=== PATIENT | male | born 1965 | race Caucasian/White ===

== ENCOUNTER 2016-11-28 05:53 | Day surgery (SDC) | payer BC ==
[~2016-11-28 05:53] MED LIST: Buffered Lidocaine 0.9% SYRIN* 5 ML/SYR SYRINGE INTRADERM ONE
[2016-11-28] MEDS ORDERED: Buffered Lidocaine 0.9% SYRIN* 5 ML/SYR SYRINGE ONE (05:55)
[2016-11-28] MEDS ORDERED: Dexamethasone IV* 4 MG/ML 1 ML (4 MG) ONE (05:55)
[2016-11-28] MEDS ORDERED: Famotidine IV* 10 MG/ML 2 ML (20 mg) ONE (05:55)
[2016-11-28] MEDS ORDERED: Clindamycin 900 MG IVPREMIX(* 900 MG/50 ML SDV IV ONE (05:55)
[2016-11-28] MEDS ORDERED: Famotidine IV* 10 MG/ML 2 ML (20 mg) IV ONE (06:00)
[2016-11-28] MEDS ORDERED: Dexamethasone IV* 4 MG/ML 1 ML (4 MG) IV SLOW PU ONE (06:00)
[2016-11-28] MEDS ORDERED: EPINEPHrine AMP 1 MG/ML ONE (06:57)
[2016-11-28] MEDS ORDERED: Bupivacaine 0.5% SDV PF* 30 ML VIAL ONE (06:58)
[2016-11-28] MEDS ORDERED: Propofol* 10 MG/ML 20 ML BTL IV PUSH ONE (07:12)
[2016-11-28] MEDS ORDERED: fentaNYL* 50 MCG/ML 2 ML VIAL (100 MCG VIAL) ONE ×2 (07:12→08:56)
[2016-11-28] MEDS ORDERED: Midazolam* 1 MG/ML 5 ML VIAL (5 MG) ONE (07:12)
[2016-11-28] MEDS ORDERED: Lidocaine 2% PF * 5 ML VIAL ONE (07:12)
[2016-11-28] MEDS ORDERED: Ketorolac INJ* 30 MG/ML 1 ML VIAL ONE (07:41)
[2016-11-28] MEDS ORDERED: Ondansetron INJ* 2 MG/ML VIAL ONE (08:03)
[2016-11-28] MEDS ORDERED: PROCHLORPERAZINE INJ 5 MG/ML 2 ML VIAL IV PRN (08:07)
[2016-11-28] MEDS ORDERED: HYDROcodone/ACETAMIN 5-325 MG* 1 TAB PO PRN (08:07)
[2016-11-28] MEDS ORDERED: oxyCODONE/Acetamin 5/325 MG* TAB ONE (08:42)
[2016-11-28] MEDS: oxyCODONE/Acetamin 5/325 MG* TAB PO PRN ×2 (08:43→08:44)
[2016-11-28] MEDS: fentaNYL* 50 MCG/ML 2 ML VIAL (100 MCG VIAL) IV PRN ×2 (08:58→09:55)
[2016-11-28] MEDS ORDERED: diPHENhydraMINE IV* 50 MG/ML 1 ml VIAL (BENADRYL) ONE (09:19)
[2016-11-28 09:49] VITALS: BP 137/77
--- NOTE | 2016-12-01 01:19 | OP ---
DATE OF OPERATION: 11/28/16 - [facility] DATE OF : 61 SURGEON: Gamal Ngo MD NURSE UNIT MANAGER: JIM Carrillo. A physician state tested nursing assistant was required for the length of the procedure for positioning and manipulation of knee and instrumentation assistance. ANESTHESIOLOGIST: Bayron Simpson MD ANESTHESIA: General anesthesia. PRE-OP DIAGNOSIS: Left knee medial meniscus tear POST-OP DIAGNOSIS: Left knee medial meniscus tear OPERATIVE PROCEDURE: Left knee arthroscopy, partial medial meniscectomy. ANTIBIOTICS: Clindamycin 900 mg IV. IV FLUIDS: 400 cc crystalloid. TOURNIQUET TIME: 23 minutes at 300 mmHg. COMPLICATIONS: None. SPECIMEN: None. IMPLANTS: None. ESTIMATED BLOOD LOSS: Minimal. 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 See my history and physical and prior clinical notes for full history. The patient had pain with terminal ranges of motion, positive medial joint line tenderness and positive Madina's test. Exam was consistent with medial meniscus tear and MRI demonstrated medial meniscus tear with what looked to be a displaced fragment that would be responsible for mechanical symptoms, displaced inferior to the body of the medial meniscus. The patient responded insufficiently to nonoperative management, opted for operative management. I discussed in the clinic benefits, risks, and potential complications of surgery. Potential complications include bleeding, infection, nerve or blood vessel injury, knee pain or stiffness, meniscus retear, knee osteoarthritis, blood clot. DESCRIPTION OF PROCEDURE: Preoperative written consent was obtained. Operative extremity was marked in the preoperative holding. The patient was taken back to the operating room and placed supine on the operating room table. The patient was sedated and intubated. A proximal thigh tourniquet was placed about the proximal left thigh. The distal thigh was placed in a circumferential thigh maciel. The table was elevated and the foot of the table was dropped. The left lower extremity was prepped using ChloraPrep from foot to thigh. Left lower extremity was draped. Surgical time-out was performed. Esmarch was applied and tourniquet was elevated to 300 mmHg. Inferolateral knee arthroscopy portal was established using standard technique. Diagnostic arthroscopy was commenced. No clear injury in the patellofemoral compartment was visualized, although there was some synovitis creeping into that compartment visualized. I next dropped down into the medical compartment. No clear significant defects or injuries of the medial compartment articular cartilage, but there was clear tear of the medial meniscus. Immediately visible was a flap from the posterior horn near the root as well as a clear fragment from the juncture of the body and posterior horn of the medial meniscus that was displaced inferiorly to the body of the medial meniscus. I established an anterior medial portal under direct visualization. I next debrided the medial meniscus back to a stable rim using an arthroscopic shaver and meniscal biters. I debrided using a working portal, the anterior medial portal and then afterwards from the anterolateral portal. The remaining meniscus was stable. The patient was fortunate in that much thickness of intact medial meniscus remained at the end of the debridement. I advanced my diagnostic arthroscopy to the intercondylar notch. ACL was intact. I advanced it to the lateral compartment where no articular cartilage injury or lateral meniscus injury was encountered. I next returned to the patellofemoral compartment and debrided some anterior synovitis. I removed the instrument and fluids from the knee. Closed skin incisions with [id number] stitches using nylon 4-0 suture. Xeroform, 4x4s, ABDs, sterile Webril, Matt bandage from foot to proximal thigh. Tourniquet was dropped. No local anesthetic was used. Cooling unit was placed on the left knee. The patient was extubated and transferred to the PACU. DISPOSITION: The patient was to be discharged home when medically stable. Percocet for pain control, aspirin 325 mg p.o. b.i.d. x2 weeks for DVT prophylaxis. Physical therapy to start immediately. The patient actually had a therapy appointment scheduled late in the afternoon on the date of surgery. The patient will follow up with me in approximately 10 to 14 days postoperative for wound check and removal of stitches. [id number]/[facility] #: [id number] DEANNA
== END 2016-11-28 10:17 | disposition home or self-care (01) ==
LOC: OR 05:53
PROVIDERS: ATTEND Orthopaedic Surgery
DX: S83.242A Other tear of medial meniscus, current injury, left knee, initial encounter (principal); X50.9XXA Other and unspecified overexertion or strenuous movements or postures, initial encounter; Y92.9 Unspecified place or not applicable; J45.909 Unspecified asthma, uncomplicated; M65.862 Other synovitis and tenosynovitis, left lower leg; K21.9 Gastro-esophageal reflux disease without esophagitis; Z88.1 Allergy status to other antibiotic agents; Z88.0 Allergy status to penicillin
CPT/HCPCS: A9270-GY; J0171; J1100; J1200; J1885; J2250; J2405; J2704; J3010